=== PATIENT | female | born 1995 | race African-American/Black ===

== ENCOUNTER 2018-11-25 07:05 | Inpatient (IN) | payer OTHER ==
[2018-11-25] MEDS ORDERED: ELECTROLYTE-148 SOLN 500 ML IV ONE (09:51)
[2018-11-25] MEDS ORDERED: AMPICILLIN SODIUM 2 GM VIAL ONE (09:57)
[2018-11-25] MEDS ORDERED: ELECTROLYTE-148 SOLN 1,000 ML IV SCH (10:00)
[2018-11-25] MEDS ORDERED: AMPICILLIN - 2 GM in SODIUM CHLORIDE 100 ML IVPB ONE (10:23)
--- NOTE | 2018-11-25 10:31 | HP ---
Past Medical History - Primary Care Physician PCP:: Riky Pardo - Admission Chief Complaint: Labor History Source: Patient Limitations to Obtaining History: No Limitations - Past Medical History FOLLOW UP CLERK: No: Alzheimer's, CVA, Dementia, Migraine, Multiple Sclerosis, Peripheral Neuropathy, Parkinson's, Seizure, Syncope, TIA, Vertigo, Other Cardiovascular: No: AFIB, Aneurysm, Aortic Insufficiency, Aortic Stenosis, CAD, CHF, Deep Vein Thrombosis, HTN, Hyperlipdemia, VT, Mitral Insufficiency, Mitral Stenosis, Murmur, Pulmonary Hypertension, Other Pulmonary: No: Asthma, Bronchitis, Cancer, COPD, O2 Dependent, Pneumonia, Previously Intubated, Pulmonary Embolus, Pulmonary Fibrosis, Sleep Apnea, Other Gastrointestinal: No: Ascites, Cancer, Constipation, Crohn's Disease, Diverticulitis, Diverticulosis, Esophageal Varices, Gastritis, GERD, GI Bleed, Hemorrhoids, Hiatal Hernia, Inflamatory Bowel Disease, Irritable Bowel Disease, Pancreatitis, Peptic Ulcer Disease, Ulcerative Colitis, Other Hepatobiliary: No: Cirrhosis, Cholelithiasis, Cholecystitis, Choledocholithiasis , Hepatitis A, Hepatitis B, Hepatitis C, Other Renal/: No: Renal Failure, Renal Inusuff, BPH, Cancer, Hematuria, Hemodialysis , Neurogenic Bladder, Renal Calculi, UTI, Other Reproductive: No: Ectopic , Endometriosis, Fibroids, PID, Polycystic Ovary Syndrome, Postmenopausal, Other ...: 2 ...Para: 1 ...Term: 0 ...: 1 ...Spon : 0 ...Induced : 0 ... Weeks Gestation by Dates: 39 ...EDC by Dates: 12/02/18 Heme/Onc: No: Anemia, B12 Deficiency, Bleeding Disorder, Cancer, Current Chemotherapy, Current Radiation Therapy, Hemochromatosis, Hypercoaguable State, Myeloproliferative Synd, Sickle Cell Disease, Sickle Cell Trait, Thrombocytopenia, Other Infectious Disease: No: AIDS, C-Diff, Herpes Zoster, HIV, MRSA, STD's, Tuberculosis, VREF, Other Psych: No: Addictions, Anxiety, Bipolar, Depression, Panic, Psychosis, Schizophrenia, Other Musculoskeletal: No: Bursitis, Chronic low back pain, Hemiparesis, Hemiplegia, Osteoarthritis, Paraplegia, Other Rheumatology: No: Fibromyalgia, Gout, Lupus, Rheumatoid Arthritis, Sarcoidosis, Vasculitis, Other ENT: No: Allergic Rhinitis, Sinusitis, Other Endocrine: No: [place]'s Disease, Giorgio's Disease, Diabetes Insipidus, Diabetes Mellitus, Hyperparathyroidism, Hyperthyroidism, Hypothyroidism, Osteopenia, SIADH, Other Dermatology: No: Basal Cell, Cellulitis, Eczema, Melanoma, Psoriasis, Squamous Cell, Other - Past Surgical History Past Surgical History: Yes: Hernia Repair (umbilical) Hx Myomectomy: No Hx Transabdominal Cerclage: No - Advance Directives Advance Directives: No: Living Will, Health Care Proxy, DNR, Organ Donor, Tissue Donor, MOLST - Smoking History Smoking history: Never smoked - Alcohol/Substance Use Hx Alcohol Use: No History of Substance Use: reports: None - Social History History of Recent Travel: No Home Medications - Allergies Allergies/Adverse Reactions: Allergies Allergy/AdvReac Type Severity Reaction Status Date / Time No Known Drug Allergies Allergy Verified 11/25/18 02:43 - Home Medications Home Medications: Ambulatory Orders Iron,Carb/Vit C/Vit B12/Folic [Iron 100 Plus Tablet] 325 mcg PO DAILY 11/25/18 19 Tablet 1 tab PO DAILY 11/25/18 Family Disease History - Family Disease History Family History: Unremarkable (as per patient) Review of Systems Findings/Remarks: Patient uncomfortable due to painful contractions - Review of Systems Constitutional: denies: No Symptoms, Chills, Diaphoresis, Fever, Lethargy, Loss of Appetite, Malaise, Night Sweats, Unintentional Wgt. Loss, Weakness, Other Eyes: denies: No Symptoms, Blind Spots, Blurred Vision, Double Vision, Eye Pain , Floaters, Photophobia, Recent Change in Vision, Other HENT: denies: No Symptoms, Difficult Swallowing, Ear Discharge, Ear Pain, Epistaxis, Gingival Bleeding, Hearing Loss, Mouth Swelling, Nasal Congestion, Ocular Prosthesis, Throat Pain, Toothache, Ringing in Ears, Other Neck: denies: No Symptoms, Decreased ROM, Lumps, Pain on Movement, Stiffness, Swollen Glands, Tenderness, Other Cardiovascular: denies: No Symptoms, Chest Pain, Edema, Palpitations, Shortness of Breath, Other Respiratory: denies: No Symptoms, Cough, Exercise Intolerance, Hemoptysis, Orthopnea, PND, Snoring, SOB, SOB on Exertion, Wheezing, Other Gastrointestinal: denies: No Symptoms, Abdominal Pain, Bloating, Constipation, Diarrhea, Dysphagia, Indigestion, Melena, Nausea, Rectal Bleeding, Vomiting, Vomiting Blood, Other Genitourinary: denies: No Symptoms, Burning, Discharge, Dysuria, Flank Pain, Frequency, Hematuria, Incontinence, Lesions, Menses, Pain, Testicular Mass, Testicular Pain, Testicular Swelling, Urgency, Vaginal Bleeding, Other Breasts: denies: No Symptoms Reported, See HPI, Breast Implants, Discharge from Nipple, Lumps, Pain, Skin Changes, Other Musculoskeletal: denies: No Symptoms, Back Pain, Crepitus, Decreased ROM, Extremity Pain, Joint Pain, Joint Swelling, Muscle Pain, Muscle Cramps, Muscle Weakness, Other Integumentary: denies: No Symptoms, Blister, Bruising, Change in Color, Eczema, Erythema, Incision, Lesions, Lump, Pallor, Pruritis, Rash, Wound, Other Neurological: denies: No Symptoms, Change in LOC, Change in Speech, Confusion, Dizziness, Headache, Incoordination, Numbness, Parasthesia, Pre-Existing Deficit , Seizure, Syncope, Tremors, Unsteady Gait, Weakness, Other Endocrine: denies: No Symptoms, Excessive Sweating, Flushing, Increased Hunger, Increased Thirst, Intolerance to Cold, Intolerance to Heat, Unexplained Weight Gain, Unexplained Weight Loss, Other Hematology/Lymphatic: denies: No Symptoms, Easily Bruised, Excessive Bleeding, Swollen Glands, Other Psychiatric: denies: No Symptoms, Altered Sleep Pattern, Anxiety, Depression, Hallucinations, Panic, Paranoia, Suicidal, Other Physical Exam - Maternity Vital Signs: Vital Signs Temperature 98.4 F 11/25/18 07:45 Pulse Rate 80 11/25/18 07:45 Respiratory Rate 20 11/25/18 07:45 Blood Pressure 125/77 11/25/18 07:45 O2 Sat by Pulse Oximetry (%) Constitutional: Yes: Well Nourished Eyes: Yes: WNL Neck: Yes: Supple Breast(s): Yes: Other (deferred) - Abdominal Exam/OB Number of Fetuses: Single Presentation: Vertex (bedside sono: JODIE 14cm, cephalic, +FM noted) Contractions: Yes Regularity: Regular Intensity: Mod/Strong Monitor Mode: External Category: I Decelerations: None - Vaginal Exam/OB Vaginal Bleediing: No Speculum Exam: Yes (no pooling, no blood, visually dilated) Dilatation (cm): 4 Effacement (%): 80 Amniotic Membrane Status: Intact (cervix in posterior position) Nitrazine Test: Negative Presentation: Vertex/Position Station: -2 - Physical Exam Edema: Yes Edema: LLE: Trace, RLE: Trace Integumentary: Yes: WNL Psychiatric: Yes: WNL - Labs Lab Results: reviewed Hemorrhage Risk Assessment - Risk Factors Medium Risk Factors: No: Prior , uterine surgery,or multiple laparotomies, Multiple gestation, Greater than 4 previous births, History of previous hemorrhage, Large myomas, EFW greater than 4000g, Obesity ( BMI >40), Hematocrit < 30% & other, None High Risk Factors: No: Placenta previa, low lying, Suspected accreta/ percreta, Active bleeding on admission, Platelets less than 70,000, Known coagulopathy, None Imaging - Results Ultrasound: Other (Bedside sono performed. [facility] pending) Problem List - Problems (1) Code(s): Z34.90 - ENCNTR FOR SUPRVSN OF NORMAL , UNSP, UNSP TRIMESTER Qualifiers: Weeks of gestation: 39 weeks Qualified Code(s): Z3A.39 - 39 weeks gestation of Assessment/Plan 23y/o @ 39.0 wks presenting from a different health center () in active labor, FHT is cat I, OB summary is partial at this moment. Patient desires epidural. -Admit -Epidural is OK -Expectant management
[2018-11-25 11:02] VITALS: BMI 29.9
[2018-11-25] MEDS ORDERED: FENTANYL/BUPIVACAINE/NS/PF - PCEA - 50 ML DISP.SYRIN EP ONE (11:08)
[2018-11-25] MEDS ORDERED: BUPIVACAINE HCL/PF 0.25% (2.5MG/ML) 10 ML VIAL ONE (11:22)
[2018-11-25] MEDS ORDERED: OXYTOCIN 20 UNITS in 0.9% NS 20 UNIT/1,000 ML INFUS.BAG IV ONE ×2 (11:24→15:40)
[2018-11-25] MEDS: FENTANYL/BUPIVACAINE/NS/PF - PCEA - 50 ML DISP.SYRIN EP SCH (11:55)
[2018-11-25] MEDS ORDERED: NALOXONE HCL 0.4 MG/ML VIAL IVPUSH PRN (11:56)
[2018-11-25] MEDS ORDERED: AMPICILLIN SODIUM 1 GM VIAL ONE (13:13)
--- NOTE | 2018-11-25 13:38 | PN ---
Ante-Partal Exam - Subjective Subjective: Progression of labor Vital Signs: Vital Signs Temperature 98.4 F 11/25/18 11:00 Pulse Rate 90 11/25/18 12:55 Respiratory Rate 20 11/25/18 12:55 Blood Pressure 134/79 11/25/18 12:55 O2 Sat by Pulse Oximetry (%) 100 11/25/18 12:55 Bleeding: No Headache: No Visual changes: No Right upper quadrant pain: No Pain (scale 1-10): 1 (comfortable) - Contractions Contractions: Yes Regularity: Regular Intensity: Unaware Monitor Mode: External - Exam during Labor Heart Rate: 140 Variability: Moderate Category: I Monitor Accelerations: Present Monitor Decelerations: None Exam: Vaginal Dilatation (cm): 9 Effacement (%): 90 Amniotic Membrane Status: Intact Presentation: Vertex (Asynclitic) Station: -2 Remarks: internal digital rotation attempted - Assessment/Plan Assessment/Plan: 23 y/O @ 39.0 wks, active labor, FHT cat I, intact membranes, GBS + S/P initial Amp loading dose @ 10 am, Asynclitic, S/P epidural and comfortable -expectant management -Consider AROM > 4hrs after Amp -Anticipate VD
[2018-11-25] MEDS ORDERED: AMPICILLIN - 1 GM in SODIUM CHLORIDE 100 ML IVPB SCH (14:00)
--- NOTE | 2018-11-25 14:14 | PN ---
Ante-Partal Exam - Subjective Subjective: patient evaluated for progression of labor Vital Signs: Vital Signs Temperature 98.4 F 11/25/18 11:00 Pulse Rate 90 11/25/18 12:55 Respiratory Rate 20 11/25/18 12:55 Blood Pressure 134/79 11/25/18 12:55 O2 Sat by Pulse Oximetry (%) 100 11/25/18 12:55 Bleeding: No Bleeding Description: Moderate Headache: No Visual changes: No Right upper quadrant pain: No - Contractions Contractions: Yes Regularity: Regular Intensity: Mild/Mod Monitor Mode: External - Exam during Labor Heart Rate: 140 (cat I) Variability: Moderate Category: I Monitor Accelerations: Present Monitor Decelerations: None Exam: Vaginal Dilatation (cm): Al Effacement (%): 100 Amniotic Membrane Status: Ruptured (Clear fluid) Station: -2 - Assessment/Plan Assessment/Plan: 23 y/o @ 39wks, S/P epidural and Amp, FHT cat , AROMed, asynclitic and internal digital rotation attempted. -Expectant management -Anticipate VD
[2018-11-25] MEDS ORDERED: WITCH HAZEL 50% (TUCKS) 40 PAD/JAR PAD TP PRN (15:47)
[2018-11-25] MEDS ORDERED: BENZOCAINE 20% 57 GM BOTTLE TP PRN (15:47)
[2018-11-25] MEDS ORDERED: BENZOCAINE 28 GM HEMORRHOIDAL OINTMENT TP PRN (15:47)
[2018-11-25] MEDS ORDERED: BISACODYL 10 MG SUPP.RECT RC PRN (15:47)
[2018-11-25] MEDS ORDERED: METHYLERGONOVINE MALEATE 0.2 MG/1 ML AMP IM PRN (15:47)
--- NOTE | 2018-11-25 15:47 | PN ---
Delivery - Delivery Vaginal Delivery: Spontaneous Type of Anesthesia: Epidural Episiotomy/Laceration: None EBL (cc): 400 Delivery, Single - Stages of Labor Placenta: Yes: Spontaneous - Condition of Temperer/Presales Consultant Present: No Infant Gender: Male Position: Left, OA - 1 Minute Total Score: 9 5 Minutes Total Score: 9 - [place] Feeding Plan Initial Plan: Elected not to breastfeed exclusively throughout hospitalization Remarks - Remarks Remarks: of VMI from JANETH position. Epidural anesthesia. Nuchal x 2 delivered through. No meconium. Spontaneous delivery of anterior shoulder. Cord reduced upon delivery of body. Cord clamped and cut. Infant placed on maternal abdomen. Weight pending. Apgars 9/9. Spontaneous delivery of intact placenta with 3VC. Perineum inspected without any lacerations. Fundus firm. EBL 400ml. Mother and baby doing well. Jacque Landis MD
[2018-11-25] MEDS ORDERED: OXYTOCIN 20 UNITS in 0.9% NS 20 UNIT/1,000 ML INFUS.BAG IV SCH (16:00)
[2018-11-25] MEDS ORDERED: IBUPROFEN 600 MG TABLET (FP) PO ONE (16:59)
[2018-11-25] MEDS ORDERED: ACETAMINOPHEN 325 MG TABLET (FP) ONE (16:59)
[2018-11-25] MEDS: IBUPROFEN 600 MG TABLET (FP) PO PRN (17:00)
[2018-11-25] MEDS: ACETAMINOPHEN 325 MG TABLET (FP) PO PRN (17:00)
[2018-11-25] MEDS: FERROUS SO4 325 MG TABLET (FP) PO SCH (22:10)
--- NOTE | 2018-11-26 07:57 | PN ---
Post Progress Note Type of Delivery: Vital Signs: Vital Signs Temperature 98.6 F 11/26/18 06:00 Pulse Rate 67 11/26/18 06:00 Respiratory Rate 18 11/26/18 06:00 Blood Pressure 132/66 11/26/18 06:00 O2 Sat by Pulse Oximetry (%) 100 11/25/18 16:30 Uterus: Yes: Fundus below umbilicus Incision: Yes: Dressing dry and intact Abdomen/GI: Yes: Abdomen soft Lochia: Yes: Rubra Lochia, amount: Small Extremities: Yes: Calves non-tender Perineum: Yes: Intact Activity: Ambulating Assessment/Plan 23yo s/p , PPD#2 Routine PP care Po pain control Labs pending Anticipate d/c to home PPD#2 Cory Landis MD
[2018-11-26 08:05] LABS: BASO % 0.2 % (0-2.0); EOS % 0.1 % (0-4.5); HEMATOCRIT 28.1 % (32.4-45.2); HEMOGLOBIN 9.3 GM/dL (10.7-15.3); LYMPH % 13.5 % (8-40); MCH 30.5 pg (25.7-33.7); MCHC 33.2 g/dl (32.0-36.0); MEAN PLT VOLUME 10.4 fl (7.5-11.1); MONO % 8.6 % (3.8-10.2); NEUT % 77.6 % (42.8-82.8); PLATELET COUNT 155 K/MM3 (134-434); RBC 3.05 M/mm3 (3.60-5.2); RDW 13.9 % (11.6-15.6); WHITE BLOOD COUNT 12.1 K/mm3 (4.0-10.0)
[2018-11-26] MEDS: PRENATAL VITAMINS W/ FOLIC ACID TABLET (FP) PO SCH (09:39)
[2018-11-26] MEDS: IBUPROFEN 600 MG TABLET (FP) PO PRN (09:39)
[2018-11-26] MEDS: FERROUS SO4 325 MG TABLET (FP) PO SCH ×2 (09:39→22:17)
[2018-11-26] MEDS: ACETAMINOPHEN 325 MG TABLET (FP) PO PRN (09:40)
[2018-11-26] MEDS ORDERED: SENNOSIDES/DOCUSATE COMBO (SENNA PLUS) TABLET (UD) PO PRN (22:00)
[2018-11-26] MEDS: FENTANYL/BUPIVACAINE/NS/PF - PCEA - 50 ML DISP.SYRIN EP SCH (22:19)
[2018-11-27 07:57] VITALS: BP 126/77; PULSE 69; TEMP 98.8
--- NOTE | 2018-11-27 08:41 | DS ---
Physical Exam-HEALTHCARE TRANSLATOR Vital Signs: Vital Signs Temperature 98.8 F 11/27/18 07:54 Pulse Rate 69 11/27/18 07:54 Respiratory Rate 20 11/27/18 07:54 Blood Pressure 126/77 11/27/18 07:54 O2 Sat by Pulse Oximetry (%) 100 11/25/18 16:30 Constitutional: Yes: Well Nourished Eyes: Yes: Conjunctiva Clear HENT: Yes: Atraumatic Neck: Yes: Supple Cardiovascular: Yes: Regular Rate and Rhythm Respiratory: Yes: Regular Gastrointestinal: Yes: Normal Bowel Sounds ...Rectal Exam: Yes: WNL External Genitalia: Yes: Normal Vaginal Exam: Yes: Normal Cervix: Yes: Normal Uterus: Yes: Firm ....Post : Yes: Uterus firm, Moderate lochia serosa Breast(s): Yes: WNL Musculoskeletal: Yes: WNL Extremities: Yes: WNL Neurological: Yes: Alert, Oriented ...Motor Strength: WNL Psychiatric: Yes: Alert, Oriented Labs: CBC, BMP 11/26/18 07:00 Delivery - Delivery Vaginal Delivery: Spontaneous Type of Anesthesia: Epidural Episiotomy/Laceration: None EBL (cc): 400 Delivery, Single - Stages of Labor Date 1st Stage Initiatied: 11/25/18 Time 1st Stage Initiated: 00:00 Date 2nd Stage Initiated: 11/25/18 Time 2nd Stage Initiated: 14:30 Date of Delivery: 11/25/18 Time of Delivery: 15:33 Time Placenta Delivered: 15:37 Placenta: Yes: Spontaneous - Condition of Lab Coordinator/Revolving Inventory Clerk Present: No Infant Gender: Male Weight: 8 lb 13 oz Position: Left, OA Total Hours ROM (Hrs/Mins): 1h27m - 1 Minute Total Score: 9 5 Minutes Total Score: 9 - [place] Feeding Plan Initial Plan: Elected not to breastfeed exclusively throughout hospitalization Discharge Summary Reason For Visit: LABOR ADMISSION Current Active Problems (Acute) Status post normal vaginal delivery (Acute) Procedures: Principal: Normal vaginal delivery Hospital Course: Routine care Condition: Stable - Instructions Diet, Activity, Other Instructions: Regular Diet Return to clinic in 4 to 6 weeks for checkup Call [facility] for appointment Referrals: Jacque Landis MD [Staff Physician] - Disposition: HOME - Home Medications Comprehensive Discharge Medication List: Ambulatory Orders Iron,Carb/Vit C/Vit B12/Folic [Iron 100 Plus Tablet] 325 mcg PO DAILY 11/25/18 Tablet 1 tab PO DAILY 11/25/18 Ibuprofen 600 mg PO Q6H PRN #30 tablet 11/26/18
[2018-11-27] MEDS: PRENATAL VITAMINS W/ FOLIC ACID TABLET (FP) PO SCH (09:31)
[2018-11-27] MEDS: FERROUS SO4 325 MG TABLET (FP) PO SCH (09:31)
== END 2018-11-27 12:00 | disposition home or self-care (01) | DRG 560 ==
LOC: JDEL 07:05 → JLDR 09:50 → J3W 17:39
PROVIDERS: ADMIT Student in an Organized Health Care Education/Training Program; ATTEND Student in an Organized Health Care Education/Training Program
PROC: 10E0XZZ Delivery of Products of Conception, External Approach (ICD-10-PCS; principal; 2018-11-25)
DX: O80 Encounter for full-term uncomplicated delivery (principal); Z3A.39 39 weeks gestation of pregnancy; Z37.0 Single live birth
CPT/HCPCS: 36415; 59025; 59409; 80053; 80307; 81003; 85025; 85610; 85730; 86593; 86762; 86850; 86900; 86901; 87340; 87389

== ENCOUNTER 2019-02-28 22:13 | Emergency (ER) | payer OTHER ==
[2019-02-28 22:18] VITALS: BP 134/84; PULSE 84; TEMP 98.1; BMI 27.4
[2019-02-28] MEDS ORDERED: TETANUS AND DIPHTHERIA TOXOID 0.5 ML DISP.SYRIN IM ONE (22:27)
[2019-02-28] MEDS ORDERED: DIPHTH,PERTUSS(ACELL),TET 0.5 ML DISP.SYRIN IM ONE (22:29)
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
[2019-02-28] MEDS ORDERED: ACETAMINOPHEN 500 MG TABLET (FP) PO ONE (22:36)
[2019-02-28] MEDS ORDERED: ACETAMINOPHEN 325 MG TABLET (FP) ONE (22:44)
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
== END 2019-02-28 23:58 | disposition home or self-care (01) ==
LOC: JERFT 22:13 → JER 22:13
PROC: 0JQ10ZZ Repair Face Subcutaneous Tissue and Fascia, Open Approach (ICD-10-PCS; principal; 2019-02-28)
PROC: 3E0234Z Introduction of Serum, Toxoid and Vaccine into Muscle, Percutaneous Approach (ICD-10-PCS; 2019-02-28)
DX: S01.81XA Laceration without foreign body of other part of head, initial encounter (principal); Y04.2XXA Assault by strike against or bumped into by another person, initial encounter; Y93.89 Activity, other specified; Y92.89 Other specified places as the place of occurrence of the external cause; F17.210 Nicotine dependence, cigarettes, uncomplicated
CPT/HCPCS: 26700; 70450-TC; 84703; 90471; 99282-25

== ENCOUNTER 2019-03-08 17:53 | Emergency (ER) | payer OTHER ==
[2019-03-08 18:10] VITALS: BP 129/79; PULSE 72; TEMP 98.3; BMI 22.3
--- NOTE | 2019-03-08 18:27 | PDOC ---
History of Present Illness - General Chief Complaint: Suture/Staple Removal(Here) Stated Complaint: STICHES REMOVAL Time Seen by Provider: 03/08/19 18:14 - History of Present Illness Initial Comments: 03/08/19 18:24 23-year-old female returns to the emergency room for suture removal from sutures placed in her face 8 days ago she's had no sequelae since suture placement. Past History - Past Medical History Allergies/Adverse Reactions: Allergies Allergy/AdvReac Type Severity Reaction Status Date / Time No Known Drug Allergies Allergy Verified 03/08/19 18:10 Home Medications: Ambulatory Orders Iron,Carb/Vit C/Vit B12/Folic [Iron 100 Plus Tablet] 325 mcg PO DAILY 11/25/18 19 Tablet 1 tab PO DAILY 11/25/18 Ibuprofen 600 mg PO Q6H PRN #30 tablet 11/26/18 Asthma: No Cancer: No Cardiac Disorders: No COPD: No Diabetes: No HTN: No Seizures: No Thyroid Disease: No - Suicide/Smoking/Psychosocial Hx Smoking History: Never smoked Number of Cigarettes Smoked Daily: 0 Information on smoking cessation initiated: No Hx Alcohol Use: No Drug/Substance Use Hx: No Hx Substance Use Treatment: No Review of Systems - Review of Systems Constitutional: Yes: See HPI *Physical Exam - Vital Signs Last Vital Signs Temp Pulse Resp BP Pulse Ox 98.3 F 72 18 129/79 99 03/08/19 18:07 03/08/19 18:07 03/08/19 18:07 03/08/19 18:07 03/08/19 18:07 - Physical Exam Comments: 03/08/19 18:24 Wound On the left forehead is healing sutures are in place eschar is formed clean dry and intact without dictation of infection normal color and temperature surrounding the wound Medical Decision Making - Medical Decision Making 03/08/19 18:25 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 After 48 hours you may remove the dressing and wash the area with soap and water and leave it open to air. Return to the emergency room should she develop problems such as redness, swelling, drainage, or increasing pain around the area otherwise follow -up with your primary care physician in 2-3 days for a wound check. The area open to air as much as possible again cover the area if you are leaving the house or doing work. - Post Discharge Activity
== END 2019-03-08 18:32 | disposition home or self-care (01) ==
LOC: JERFT 17:53
DX: Z48.817 Encounter for surgical aftercare following surgery on the skin and subcutaneous tissue (principal); Z48.02 Encounter for removal of sutures
CPT/HCPCS: 99281-25

== ENCOUNTER 2020-01-31 13:03 | Emergency (ER) | payer OTHER ==
--- NOTE | 2020-01-31 13:12 | PDOC ---
Rapid Medical Evaluation Medical Evaluation: Allergies Allergy/AdvReac Type Severity Reaction Status Date / Time No Known Drug Allergies Allergy Verified 03/08/19 18:10 01/31/20 13:10 24 yo F c/o L knee pain s/p injury yesterday while playing soccer. denies any other injuries. VSS sitting on wheelchair A/P: L knee pain L knee xray
[2020-01-31 13:13] VITALS: BP 122/82; PULSE 95; TEMP 98.4; BMI 25.7
[2020-01-31] MEDS ORDERED: IBUPROFEN 400 MG TABLET (FP) PO ONE (13:40)
--- NOTE | 2020-01-31 13:51 | PDOC ---
History of Present Illness - General Chief Complaint: Injury Stated Complaint: LEFT FOOT INJURY Time Seen by Provider: 01/31/20 13:17 History Source: Patient Past History - Medical History Allergies/Adverse Reactions: Allergies Allergy/AdvReac Type Severity Reaction Status Date / Time No Known Drug Allergies Allergy Verified 01/31/20 13:13 Home Medications: Ambulatory Orders Iron,Carb/Vit C/Vit B12/Folic [Iron 100 Plus Tablet] 325 mcg PO DAILY 11/25/18 19 Tablet 1 tab PO DAILY 11/25/18 Ibuprofen 600 mg PO Q6H PRN #30 tablet 11/26/18 Ibuprofen [Motrin -] 600 mg PO QID #28 tablet 01/31/20 Asthma: No Cancer: No Cardiac Disorders: No COPD: No Diabetes: No HTN: No Seizures: No Thyroid Disease: No - Immunization History Immunization Up to Date: Yes - Psycho-Social/Smoking History Smoking History: Never smoked Have you smoked in the past 12 months: No Number of Cigarettes Smoked Daily: 0 Information on smoking cessation initiated: No - Substance Abuse Hx (Audit-C & DAST Scrn) How often the patient has a drink containing alcohol: Never Score: In Men: 4 or > Positive; In Women: 3 or > Positive: 0 Screen Result (Pos requires Nsg. Audit-10AR): Negative In the last yr the pt used illegal drug/Rx for NonMed reason: No Score: Yes response is considered Positive: 0 Screen Result (Positive result requires Nsg. DAST-10): Negative *Physical Exam - Vital Signs Last Vital Signs Temp Pulse Resp BP Pulse Ox 98.4 F 95 H 17 122/82 100 01/31/20 13:11 01/31/20 13:11 01/31/20 13:11 01/31/20 13:11 01/31/20 13:11 Medical Decision Making - Medical Decision Making 01/31/20 13:53 24 yo F, no sig hx, here w/ L knee pain and swelling. Discharge - Discharge Information Problems reviewed: Yes Clinical Impression/Diagnosis: Knee sprain Qualifiers: Encounter type: initial encounter Involved ligament of knee: unspecified ligament Laterality: left Qualified Code(s): S83.92XA - Sprain of unspecified site of left knee, initial encounter Condition: Good Disposition: HOME - Additional Discharge Information Prescriptions: Ibuprofen [Motrin -] 600 mg PO QID #28 tablet - Follow up/Referral Referrals: Thaddeus Rosenthal MD [Staff Physician] - - Patient Discharge Instructions Patient Printed Discharge Instructions: DI for Knee Sprain Additional Instructions: Rest, elevate and ice knee. Wear DIAN for swelling and use crutches as needed Take motrin as needed for pain If pain persists after 2 weeks, follow with Dr Rosenthal of orthopedics - Post Discharge Activity Work/Back to School Note: Back to Work
== END 2020-01-31 13:55 | disposition home or self-care (01) ==
LOC: JERFT 13:03
DX: S83.92XA Sprain of unspecified site of left knee, initial encounter (principal)
CPT/HCPCS: 73562-TC-LT-FY; 99283-25